=== PATIENT | male | born 1970 | race Caucasian/White ===

== ENCOUNTER → 2023-07-23 14:12 | Outpatient (REF) | payer OTHER, SELFPAY | LOC: RAD 14:12 | PROVIDERS: ATTENDING PHYSICIAN Nurse Practitioner | DX: M79.671 Pain in right foot (principal) | CPT/HCPCS: 73630 ==

== ENCOUNTER → 2024-09-07 15:46 | Outpatient (REF) | payer OTHER, SELFPAY | LOC: RAD 15:46 | PROVIDERS: ATTENDING PHYSICIAN Nurse Practitioner | DX: M54.12 Radiculopathy, cervical region (principal); M25.511 Pain in right shoulder | CPT/HCPCS: 72052; 73030 ==

== ENCOUNTER 2024-09-16 05:25 | Observation (INO) | payer OTHER, SELFPAY ==
[2024-09-15 18:23] VITALS: BP 199/129
[2024-09-15 18:42] LABS: % Basophils 0.4 % (0-2); % Eosinophils 0.1 % (0-6); % Immature Granulocytes 0.6 % (0-0.5); % Lymphocytes 9.2 % (20.5-51.1); % Neutrophils 86.7 % (42.2-75.2); Absolute Basophils 0.1 10^3/uL (0-0.2); Absolute Immature Granulocytes 0.1 10^3/uL (0-0.05); Absolute Lymphocytes 1.1 10^3/uL (1.2-3.4); Absolute Monocytes 0.4 10^3/uL (0.1-0.6); Absolute Neutrophils 10.2 10^3/uL (1.4-6.5); Hematocrit 45.5 % (39.0-52.0); Hemoglobin 16.4 g/dL (13.0-18.0); Mean Corpuscular Volume 94.2 fL (80.0-94.0); Mean Platelet Volume 10.1 fL (7.4-10.4); Nucleated Red Blood Cells % 0 % (-); Platelet Count 362 10^3/uL (130-400); Red Blood Cell Count 4.83 10^6/uL (4.70-6.10); Red Cell Dist. Width 11.9 % (11.5-14.5); White Blood Cell Count 11.7 10^3/uL (4.8-10.8)
[2024-09-15 19:05] LABS: ALT (SGPT) 32 U/L (0-50); AST (SGOT) 31 U/L (17-59); Albumin 5.2 g/dl (3.5-5.0); Alkaline Phosphatase 74 U/L (38-126); Blood Urea Nitrogen 22 mg/dl (9-20); Calcium 10.2 mg/dl (8.4-10.2); Carbon Dioxide 23 mmol/L (22-30); Chloride 108 mmol/L (98-107); Glucose 184 mg/dl (70-99); Potassium 4.9 mmol/L (3.5-5.1); Sodium 140 mmol/L (135-145); Total Bilirubin 0.4 mg/dl (0.2-1.3); Total Protein 8.7 g/dl (6.3-8.2); eGFR > 60.00
[2024-09-16] VITALS (9 sets, daily range): BP systolic 134–206; BP diastolic 93–128; BMI 23.6
[2024-09-16] MEDS: NSS 500 IV (00:52)
[2024-09-16 01:26] LABS: Troponin I < 0.012 ng/ml
--- NOTE | 2024-09-16 01:28 | ED.GENMED ---
History of Present Illness
General
Chief Complaint: Musculo-Skeletal Complaint
Source: patient
Exam Limitations: none
Time Seen by Provider: 09/15/24 23:46
History of Present Illness
History of Present Illness:
54-year-old male complaining of numbness to the 3 fingers of the right arm and some posterior back pain. Has been going on for weeks. No chest pain or shortness of breath. No weakness in the arm. No bowel or bladder issues.
Past History
Past History
ED Past Medical History: None
Review of Systems
Review of Systems
All Other Systems: Not applicable
Respiratory: Reports no symptoms
Cardiac: Reports no symptoms
ABD/GI: Reports no symptoms
Phy Exam
Physical Exam
Physical Exam:
GENERAL: Alert and oriented in no apparent distress
EYE: Orbits normal.
NECK: Supple, no significant adenopathy.
ENT: Pharynx without erythema
CARDIAC: Regular rate and rhythm without any obvious murmurs.
LUNGS: Clear breath sounds,normal
ABDOMEN: Soft, without focal tenderness or distention
NEUROLOGICAL: Alert and oriented , grossly non-focal. 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 Interosseous intact. Abduction of the shoulder intact. Good lower extremity strength.
SKIN: Warm and dry, no rash or lesion, no discoloration, skin intact.
MUSCULOSKELETAL: No edema,no deformity.Good color
PSYCH: Normal and appropriate interaction.
Course
Orders/Labs/Results
Orders:
Orders
09/15/24 18:27
Electrocardiogram (*1) Urgent
Reason for Study: Hypertension, Benign
EKG- Treatment ONCE
09/15/24 18:33
Complete Blood Count/With Diff Urgent
Comprehensive Metabolic Panel Urgent
09/16/24 00:03
CT Cervical Spine W/o Iv Contr Urgent
Comment:
Reason For Exam: Right arm paresthesias
09/16/24 00:29
CT Chest Angio W/wo Iv Contras Urgent
Comment:
Reason For Exam: Mid back pain/hypertensive
IV Insert/Care/Rem.- Treatment PRN
0.9% Sodium Chloride 500 ml [Nss] 500 ml IV BOLUS
09/16/24 00:54
Troponin I Urgent
09/16/24 01:48
HYDROmorphone [Dilaudid] 0.25 mg .ROUTE .STK-MED ONE
09/16/24 01:49
HYDROmorphone [Dilaudid] 0.25 mg IV NOW STA
09/16/24 02:55
Labetalol HCl [Trandate] 10 mg IV NOW STA
09/16/24 04:47
Admit/Transfer Patient As Directed
Co-Sign Provider:
Level of Care: Observation services
Assign to:: Telemetry
Physician / Group: Laz
Transfer to: Medical/Surgical
Diagnosis: RUE numbness/back pain r/o ACS
Reason for Telemetry: Chest Pain syndromes
Date to Stop Telemetry: 09/18/24
Time to Stop Telemetry: 11:00
Reason for Hospitalization: RUE numbness/back pain r/o ACS
PRN Pain Medication Management As Directed
May give lesser potent ordered pain med per pt: Yes
preference::
Protocol:: Medication orders for pain may be administered in a
manner that supports deferring to patient preference
when the pt is:
- Requesting an ordered lesser potent pain medication.
Least to most potent pain medications are defined
as: acetaminophen < NSAID < tramadol < opioids
(morphine, oxycodone, hydromorphone).
- Requesting a lesser dose of the same medication IF
ORDERED.
- Requesting a less intrusive route of administration
if both routes are prescribed by the provider (PO <
IV).
09/16/24 04:48
Code Status As Directed
Resuscitation Status: Full Code
09/16/24 04:52
Lactated Ringers [Lr] 500 ml IV BOLUS
09/16/24 04:55
Amlodipine [Norvasc] 5 mg PO DAILY
09/16/24 05:00
Flush (0.9% Sodium Chloride) [Flush (Nss)] See Dose Instructions IV PER PROTOCOL
09/16/24 05:04
Tramadol HCl [Ultram] 50 mg PO Q6HPRN PRN
09/16/24 05:17
Labetalol HCl [Trandate] 10 mg IV Q6HPRN PRN
09/16/24 Breakfast
NPO
Allow oral meds: Yes
Allow clear liquids: Sips of Clears
NPO with Ice Chips: Yes
09/16/24 07:10
CPK [Creatine Phosphokinase] Urgent
Comment: add on
Troponin I Urgent
09/16/24 08:35
Acetaminophen [Tylenol] 650 mg PO Q4HPRN PRN
Bisacodyl [Dulcolax] 10 mg RECTAL [id number] PRN
Docusate W/Senna [Senokot-S] 1 tablet PO BIDPRN PRN
Ketorolac [Toradol] 15 mg IV Q6HPRN PRN
Mag Hydrox/Al Hydrox/Simeth [Maalox] 30 ml PO QIDPRN PRN
Ondansetron Injectable [Zofran] 4 mg IV Q6HPRN PRN
Pantoprazole [Protonix] 40 mg PO DAILY
Polyethylene Glycol Powder [Miralax] 17 grams PO DAILYPRN PRN
09/16/24 08:35
Consult Cardiology [CARDIOLOGY CONSULT] Routine
Consulting Provider: Jacob Pineda
Was physician already notified: No
Reason for consult: Mild abnormal CT findings. Subtle Lateral ST depressions. Mother with MIx5.
Consult Notification Routine
Specialty to Notify: Cardiology
Date consulting provider notified: 09/16/24
Time consulting provider notified: 08:46
Notified:: Provider
Comment: TT
Consult Notification Routine
Specialty to Notify: Neurology
Date consulting provider notified: 09/16/24
Time consulting provider notified: 08:46
Notified:: Provider
Comment: TT
NEUROLOGY CONSULT Routine
Consulting Provider: Mich Kilpatrick
Was physician already notified: No
Reason for consult: RUE neuropathy ?plexopathy.
Activity As Directed
Activity Level: As Tolerated
Vital Signs As Directed
Frequency: Per unit guidelines
DX Deep Vein Thrombosis Video Routine
09/16/24 18:00
Enoxaparin Sodium [Lovenox] 40 mg SC QPM
09/17/24 06:00
Basic Metabolic Panel IN AM
Cardiovascular Evaluation IN AM
Complete Blood Count/No Diff IN AM
Hemoglobin A1c [Glycohemoglobin (HgbA1c)] IN AM
LFT [Nkyxx-Yeot-Vzdfura] IN AM
Magnesium IN AM
Vitamin B12 IN AM
OT Consult [Ot Eval And Treat] IN AM
Treatment: RUE pain/neuropathy
Physical Therapy Consult [Pt Eval And Treat] IN AM
Treatment: RUE pain/neuropathy
Activity Level: As Tolerated
09/18/24 11:00
DC Protocol for Telemetry ONCE
Abnormal Lab Results
09/15/24
18:33
WBC 11.7 H 10^3/uL
(4.8-10.8)
MCV 94.2 H fL
(80.0-94.0)
MCH 34.0 H pg
(27.0-31.0)
Abs Immat Gran (auto) 0.1 H 10^3/uL
(0-0.05)
Absolute Neuts (auto) 10.2 H 10^3/uL
(1.4-6.5)
Absolute Lymphs (auto) 1.1 L 10^3/uL
(1.2-3.4)
Immature Gran % 0.6 H %
(0-0.5)
Neutrophils % 86.7 H %
(42.2-75.2)
Lymphocytes % 9.2 L %
(20.5-51.1)
Chloride 108 H mmol/L
(98-107)
BUN 22 H mg/dl
(9-20)
Glucose 184 H mg/dl
(70-99)
Total Protein 8.7 H g/dl
(6.3-8.2)
Albumin 5.2 H g/dl
(3.5-5.0)
09/15/24 18:33
09/15/24 18:33
Vital Signs
Initial and Last Documented VS:
Initial Vital Signs
Temp Pulse Resp BP Pulse Ox
98.2 F 100 16 199/129 96
09/15/24 18:23 09/15/24 18:23 09/15/24 18:23 09/15/24 18:23 09/15/24 18:23
Last Documented Vital Signs
Temp Pulse Resp BP Pulse Ox
97.3 F 65 18 141/93 95
09/16/24 11:45 09/16/24 11:45 09/16/24 11:45 09/16/24 11:45 09/16/24 11:45
MDM/Problems Addressed
Differential Diagnosis Includes:
Patient very much describing radiculopathy like symptoms with symptoms to the right brachial plexus and upper scapular area. However with symptoms hypertension bilaterally feel dissection needs to be ruled out. This does not appear cardiac. Mild
white count but has been on steroids. Doubt an infectious etiology. Not describing other infectious issues. Also not describing any acute neurologic symptoms other than the paresthesias to digits 1 2 and 3.
*Radiology
Radiology exam reviewed: radiology read reviewed (Cervical spine with left-sided foraminal changes. CT scan chest showing subtle subendocardial hypoattenuation. Esophagitis appearance by CT)
*Critical Care Note
Total Time (30-74mins, 75-104mins- exclusive of procedures): Not Applicable
Update Note
Update Note:
Patient's last diastolic blood pressure was 118 and this was after pain management. He should be admitted for blood pressure control and further workup of his symptoms. Clinically this is likely a radiculopathy
ED Attending Note
-
Portions of this chart may have been created with voice recognition software.� Occasional wrong word or��sound alike� substitutions may have occurred due to the inherent limitations of voice recognition software.
Discharge Plan
Departure
Patient Disposition: Admit
Date of Disposition: 09/16/24
Time of Disposition: 02:57
Presentation/result/management discussed w/ accepting MD/DO: Hospitalist
Discharge Problem:
Severe hypertension, Right arm radiculopathy
Interventions
Interventions:
*Risk Screen - Suicide Last Done: 09/15/24 18:26
*General Assessment Last Done: 09/16/24 05:54
*Neglect/Abuse Screening Last Done: 09/15/24 18:26
*ED- Fall Risk Assessment Last Done: 09/15/24 23:14
*ED COVID-19 Vaccine History Last Done: 09/15/24 23:15
*Nursing Disposition Last Done: 09/16/24 08:25
ED-Musculoskeletal Assessment Last Done: 09/15/24 23:15
Discharge Date and Time
Discharge Date/Time: 09/16/24 08:25
[2024-09-16] MEDS: DILAUDID 0.25 MG IV (01:49)
[2024-09-16] MEDS: TRANDATE 10 MG IV (03:16)
--- NOTE | 2024-09-16 04:56 | HPS.HSE ---
Family Physician
-
Family Physician: Linda Meza
Chief Complaint
-
Shoulder and RUE Pain/Neuropathy/Numbness x 2.5 weeks
History of Present Illness
Pleasant 54yo M with PMH Untreated HTN presents to ER wtih RUE Shoulder Pain/Neuropathy/Numbness x 2.5 weeks. 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 Has since had A/P right shoulder
pain. Over the last 4 days noticed numbness/tingling of R digits 1-2-3. He also reports pain between his b/l shoulder blades. Denies any specific chest pain or involvement of left shoulder/jaw. He does report mother with CA x 5, age 72. Also
father wtih Hx PE but likely 2/2 malignancy. Denies F/C, CP, palps, SOb, cough, abd pain, n/v/d/c, dysuria, calf or leg pain. 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
ER course: Pt presents BP 206/118 on presentation other V.S.S. WBC 11.7K, Hgb 16.4 g/dL. BUN/Cr 22/0.7, BG 184, HS Trop <0.012.�CTA chest: No PE/dissection.��Heart normal size. subtle subendocardial hypoattentuation in LV, correlate for CA. 3mm RUL
nodule. Mild thickening suggesting esophagitis. Fatty Liver. CT Cspine Cervical spine with left-sided foraminal changes (official health insurance sales agent pending). EKG: ST @ 104bpm, Q-waves V1-V2, Subtle ST-Dep v-4V6, I-AVL, QTC 444ms.�S/P 0.25mg IV dilaudid
in ER.
Medical History
Past Medical History
Past Medical History: Reports HTN
Past Surgical History: Reports None
Social History
Tobacco: Smoker (1/2 PPD x 28 yrs)
Alcohol: Other (Frequent 2-3 beers 4x per week (bar shank faker). No seizures/withdrawal hx)
Drug: Other (Former occasional marijuana)
Family History
Family History: Other (Mother wtih CAD s/p CA x5; Father with PE/DVT and Malignancy )
Allergies / Home Medications
Allergies reflects when Allergies were last updated in [facility].
Home Medications with original date entered in [facility]
Allergy/Medication List:
Allergies
Allergy/AdvReac Type Severity Reaction Status Date / Time
No Known Allergies Allergy Unverified 09/15/24 18:27
Review of Systems
-
A 12 point ROS was completed and negative except as noted: Yes
Physical Exam
Vital Signs
Vital Signs
Temp Pulse Resp BP Pulse Ox
98.2 F 76 14 157/109 97
09/15/24 18:23 09/16/24 03:45 09/16/24 03:45 09/16/24 03:45 09/16/24 03:45
Physical Exam
General: Well Developed, Well Nourished and No Apparent Distress
HEENT: NormoCephalic, Moist mucous membranes and Atraumatic
Respiratory: Clear
Cardiac: S1/S2 and Regular Rhythm; No Murmur or Rub
GI: Soft, Non Tender, Non Distended and Normal Bowel Sounds; No Organomegaly
Rectal: Deferred by Provider
Genito-urinary: No costovertebral tender; No Barnes
Musculoskeletal: No Clubbing, No Cyanosis and No Edema
Skin: Warm and Dry; No Rash
Neuro: Awake, Alert, Oriented, AO x 3, Cranial Nerves Intact and Other (RUE pain with active/passive shoulder flexion. +TTP right posterior/anterior shoulder joint. No reproducible chest or back pain. Diminished sensation of digits 2>1 and 3 on
right. Otherwise sensation intact. ); No Slurred Speech, Facial Droop or Tremors
Hematologic/Lymphatic: No Lymphadenopathy
Psych: Calm
Laboratory Results
-
09/15/24 18:33
09/15/24 18:33
Laboratory Results
Total Bilirubin 0.4 mg/dl (0.2-1.3) 09/15/24 18:33
AST 31 U/L (17-59) 09/15/24 18:33
ALT 32 U/L (0-50) 09/15/24 18:33
Alkaline Phosphatase 74 U/L (38-126) 09/15/24 18:33
Troponin I < 0.012 ng/ml 09/16/24 00:54
Data Reviewed
-
Diagnostic Radiology: Image Personally Visualized and interpreted
CT Scan: Image Personally Visualized and interpreted
Medical Tests (Nuc Med, Echo, EKG etc): Image Personally Visualized and interpreted
Lab Data: Labs Reviewed by me
Old Records: Reviewed
Impression/Plan
-
Hypertensive Urgency
- BP 206/118 -> 160/100 s/p 10mg IV labetalol in ER
- Start 5mg Amlodipine and follow trends
- Prn labetalol for SBP > 170 mmHg
- Appreciate cardio recs.
Abnormal EKG / Abnormal CTA Chest
- Incidental findings on this admission in setting of hypertensive urgency. Does not appear to have any chest pain or exertional complaints
- EKG: ST @ 104bpm, Q-waves V1-V2, Subtle ST-Dep v-4V6, I-AVL, QTC 444ms.�
- CTA chest: No PE/dissection.��Heart normal size. subtle subendocardial hypoattenuation in LV, correlate for CA. 3mm RUL nodule. Mild thickening suggesting esophagitis. Fatty Liver
- HS Trop Neg x 1. Repeat pending. Check lipids/A1C
- Consider TTE
- Will consult cardio noting Pts mother with Fhx MIx5; also with ETOH use. Suspect he would benefit from ischemic testing in vs outpatient.
Right Upper Extremity Neuropathy / Numbness Tingling
- Likely related to heavy lifting with associated neuropathy and numbness/tingling worst and R 2nd digit > 1st and 3rd.
- CT C-spine: left-sided foraminal changes, follow official read
- S/P 0.25mg IV dilaudid in ER. Continue prn Tylenol/Toradol/Tramadol for kmax-iun-usrrly pain.
- Consider Steroid taper (once BP controlled) or Gabapentin
- Consult PT/OT
- Will consult neuro given the dec sensation. Consideration for MRI
Esophageal Thickening - Incidental finding on CT imaging. Likely related to ETOH use. Start protonix daily. Maalox TIDWM prn
Alcohol Use - Drinking 2-3 beers 4 x per week. Check LFTs. CT with fatty liver findings. Denies past withdrawal issues. Will monitor and treat accordingly.
Diet: NPO pending cardiac eval, likely safe to advance
DVT ppx: Lovenox
Code Status: Full code
[2024-09-16] MEDS: NORVASC 5 MG PO ×2 (05:22→09:05)
[2024-09-16] MEDS: LR 500 IV (05:25)
[2024-09-16] MEDS: ULTRAM 50 MG PO (06:31)
[2024-09-16 07:30] LABS: Creatine Phosphokinase 60 U/L (55-170)
[2024-09-16 07:43] LABS: Troponin I < 0.012 ng/ml
[2024-09-16] MEDS: PROTONIX 40 MG PO (09:05)
--- NOTE | 2024-09-16 09:48 | CON.CAR ---
Addendum entered and electronically signed by Fawad Rivera MD 09/16/24 16:01:
I saw and examined the patient.
The SLITTER SCORER's note was reviewed and I agree with the note.
54-year-old male with a history of smoking and hypertension who presented with right shoulder pain and numbness in the fingers on his right hand. Symptoms occurred while lifting a keg of beer.
No prior cardiac history no chest discomfort or shortness of breath. Prior to lifting the keg he felt fine with physical exertion. Patient had a CT scan on the initial read there was a question regarding subendocardial hypoattenuation of unclear
etiology although on the official reading this area is not not reported as abnormal. CT scans were reviewed with radiology. Not clear that there is a true abnormality. In any case patient's troponins are negative. No symptoms to suggest angina
or CHF echocardiogram shows normal left ventricular function with no focal wall motion abnormalities. I reviewed issues with patient. I would not recommend additional cardiac testing at the current time. Would focus on the chief problem which is
his right shoulder pain and hand numbness. I did review with him risk factors for coronary artery disease and we discussed the importance of stopping smoking as well as monitoring and treatment of hypertension. We discussed possible stress testing
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 Will reassess as an outpatient after he has additional recovery. Please call if additional assistance required
Original Note:
Consultation
Consultation Request
Date/Time Consultation Requested: 09/16/24834
Date/Time Consultation Performed: 09/16/24924
Requesting Provider: Dr. Nesbitt
Performing Provider: Shanika FIERRO for Dr. Rivera
Reason for Consultation: abnormal CT scan, EKG
Medical History
-
Chief Complaint: right shoulder pain and finger numbness
History of Present Illness:
54 y/o male with HTN (told every year if it gets worse, he'd need medicine) and tobacco use who is here for evaluation of about 1 week of right shoulder pain with associated numbness of 3 fingers on right hand. He recalls when he hurt it carrying
kegs of beer. Worse in certain positions. Pain meds helped here. BP severely elevated on arrival, improved with treatment of pain and also anti-hypertensives (labetalol, amlodipine). CT scan done and showed no dissection, but did show subtle
subendocardial hypoattenuation within left ventricle. No CP or SOB. No distress at the time of my assessment.
Past Medical History
Past Medical History: HTN
Social History
Tobacco: Smoker (1/2 PPD)
Alcohol: Other (3-4 drinks, 3-4 days per week)
Family History
Family History: CAD (mom SD age 60)
Allergies / Home Medications
Allergy/AdvReac Type Severity Reaction Status Date / Time
No Known Allergies Allergy Unverified 09/15/24 18:27
�Medication �Instructions �Recorded �Confirmed �Type
No Meds [No Current Medications] 09/16/24 09/16/24 History
Review of Systems
-
History Source: Patient
All other systems: Negative unless noted
Musculoskeletal: Other (right shoulder pain and fingers numbness as described)
Physical Exam
Vital Signs
Temp Pulse Resp BP Pulse Ox
97.9 F 66 18 149/96 94
09/16/24 08:36 09/16/24 08:36 09/16/24 08:36 09/16/24 08:36 09/16/24 08:36
Lab Results
09/15/24 18:33
09/15/24 18:33
Troponin I < 0.012 ng/ml 09/16/24 07:10
Physical Exam
General: Well Developed, Well Nourished and No Apparent Distress
HEENT: Normocephalic and Anicteric
Respiratory: Clear and Non Labored Respirations
Cardiac: Regular Rhythm
Musculoskeletal: No Edema
Skin: Warm and Dry
Neuro: AO x 3
Psych: Calm
Impression / Plan
-
Right shoulder pain with finger numbness:
-sounds to be musculoskeletal related to injury as noted in detail
-neuro is consulted with numbness
Abnormal CT scan:
-no acute thoracic aortic pathology, subtle subendocardial hypoattenuation within LV, 3 mm micronodule within RUL, mild thickening of distal esophagus suggesting esophagitis, fatty liver
-for cardiac abnormality, will start with echo. No CP or SOB and trop is normal. Repeat EKG- initial did not show and significant abnormalities to my review.
-other findings- workup and management per primary team
HTN:
-severely elevated on arrival
-improved with pain control and antihypertensives
-continue amlodipine and monitoring
Tobacco abuse:
-recommended total cessation
ETOH use:
-recommended cutting back on use
Data Reviewed
-
EKG: Tracing Personally Visualized and interpreted
CT Scan: Report Reviewed by me (no acute thoracic aortic pathology, subtle subendocardial hypoattenuation within LV, 3 mm micronodule within RUL, mild thickening of distal esophagus suggesting esophagitis, fatty liver)
Medical Tests (Nuc Med, Echo etc): Other (echo ordered)
Labs: Labs Reviewed by me
[2024-09-16] MEDS: TORADOL 15 MG IV (11:20)
--- NOTE | 2024-09-16 14:03 | CON.NEURO ---
Neuro Assessment/Plan
Assessment
probably carpal tunnel, with numbness in digits 1-3 and weakness of thumb abduction; though the numbness doesn't split digit 4, and there is no numbness on the hand
outpatient EMG
declines rx gabapentin
right supraspinatus and biceps tendonitis - outpatient PT
Consultation
Order
Date of Consultation: 09/16/24
Requesting Provider: Yolande Nesbitt
Reason for Consult: paresthesia
Subjective/Objective
Subjective Data
Date of Service: September 16, 2024
from h&p:
Pleasant 54yo M with PMH Untreated HTN presents to ER [facility] Shoulder Pain/Neuropathy/Numbness x 2.5 weeks. 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 Has since had A/P right shoulder
pain. Over the last 4 days noticed numbness/tingling of R digits 1-2-3. He also reports pain between his b/l shoulder blades. Denies any specific chest pain or involvement of left shoulder/jaw. He does report mother with NE x 5, age 72. Also
father wt Hx PE but likely 2/2 malignancy. Denies F/C, CP, palps, SOb, cough, abd pain, n/v/d/c, dysuria, calf or leg pain. 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
in 2019 he fell off a deck on his right shoulder, fractured right humerus great tuberosity, labrum tear, glenohumeral sprain. also found right teres minor atrophy - healed without surgery
Objective Data
Vital Signs
Temp Pulse Resp BP Pulse Ox
36.3 C 65 18 141/93 95
09/16/24 11:45 09/16/24 11:45 09/16/24 11:45 09/16/24 11:45 09/16/24 11:45
Lab Results
09/15/24 18:33
Sodium 140 mmol/L (135-145) 09/15/24 18:33
Potassium 4.9 mmol/L (3.5-5.1) 09/15/24 18:33
BUN 22 mg/dl (9-20) H 09/15/24 18:33
Glucose 184 mg/dl (70-99) H 09/15/24 18:33
Calcium 10.2 mg/dl (8.4-10.2) 09/15/24 18:33
Patient Allergies
No Known Allergies Allergy (Unverified 09/15/24 18:27)
Physical Exam
-
AAOx3, speech clear, language intact
right hand diminished pinprick digits 1-3, with intact sensation on palm, does not split digit 4
right APB 4/5 strength, remainder muscles full strength
tender right supraspinatus tendon and biceps tendon
empty can test negative
Chery and Pillai signs negative
Medications
-
Active Medications
Generic Name Dose Route Start Last Admin
Trade Name Freq PRN Reason Stop Dose Admin
Acetaminophen 650 mg 09/16/24 08:35
Acetaminophen 325 Mg Tablet PO 10/14/24 08:34
Q4HPRN PRN
mild pain/HORTON/temp> 100.4F
Al Hydrox/Mg Hydrox/Simethicone 30 ml 09/16/24 08:35
Mag/Al/Simethicone Suspension 30 Ml Cup PO 10/14/24 08:34
QIDPRN PRN
indigestion
Amlodipine Besylate 5 mg 09/16/24 04:55 09/16/24 09:05
Amlodipine 5 Mg Tablet PO 10/14/24 04:54 5 mg
DAILY GRACY Administration
Bisacodyl 10 mg 09/16/24 08:35
Bisacodyl 10 Mg Rectal Suppository RECTAL 10/14/24 08:34
[id number] PRN
constipation
Enoxaparin Sodium 40 mg 09/16/24 18:00
Enoxaparin Sodium 40 Mg/0.4 Ml Syringe SC 10/14/24 17:59
QPM GRACY
Ketorolac Tromethamine 15 mg 09/16/24 08:35 09/16/24 11:20
Ketorolac 15 Mg/Ml Injection IV 09/21/24 08:34 15 mg
Q6HPRN PRN Administration
moderate pain
Labetalol HCl 10 mg 09/16/24 05:17
Labetalol Hcl 5 Mg/1 Ml (20 Mg/4 Ml) Injection IV 10/14/24 05:16
Q6HPRN PRN
SBP > 170 mmHg
Ondansetron HCl 4 mg 09/16/24 08:35
Ondansetron 4 Mg/2 Ml Vial IV 10/14/24 08:34
Q6HPRN PRN
nausea and vomiting
Pantoprazole Sodium 40 mg 09/16/24 08:35 09/16/24 09:05
Pantoprazole 40 Mg Delayed Release Tablet PO 10/14/24 08:34 40 mg
DAILY GRACY Administration
Polyethylene Glycol 17 grams 09/16/24 08:35
Polyethylene Glycol Powder 17 Grams Packet PO 10/14/24 08:34
DAILYPRN PRN
constipation
Senna/Docusate Sodium 1 tablet 09/16/24 08:35
Docusate W/Senna (Catherine-Colace) Tablet PO 10/14/24 08:34
BIDPRN PRN
constipation
Sodium Chloride 0 flush 09/16/24 05:00
Sodium Chloride 0.9% (Flush) Syringe IV 10/14/24 04:59
PER PROTOCOL GRACY
Tramadol HCl 50 mg 09/16/24 05:04 09/16/24 06:31
Tramadol Hcl 50 Mg Tablet PO 10/14/24 05:03 50 mg
Q6HPRN PRN Administration
severe pain
Home Medications
�Medication �Instructions �Recorded
No Meds [No Current Medications] 09/16/24
[2024-09-16 14:11] LABS: Blood Urea Nitrogen 14 mg/dl (9-20); Calcium 9.4 mg/dl (8.4-10.2); Carbon Dioxide 24 mmol/L (22-30); Chloride 108 mmol/L (98-107); Estimated Creatinine Clearance > 125 ml/min; Glucose 114 mg/dl (70-99); Potassium 4.3 mmol/L (3.5-5.1); Sodium 138 mmol/L (135-145); eGFR > 60.00
--- NOTE | 2024-09-16 16:41 | W.PN.HOSP.TC ---
Addendum entered and electronically signed by Leah Flood MD 09/16/24 16:53:
Sent a message to GI front office to schedule an appointment for EGD
OP stress test
More than 30 minutes spent in discharge including
Final examination of the patient
Summarizing hospital stay
Instructions for continuing care to all relevant caregivers
Preparation of discharge records, prescriptions, and referral forms
Total time spent (in minutes):38 min
Original Note:
Today's Communication/Plan
-
Discharge
Assessment / Plan
Assessment / Plan
54-year-old male with hypertension comes in for right shoulder pain and numbness of the 3 fingers on the right hand for 2-1/2 weeks. He was carrying kegs of beer when this started. CT in the ER did not show any acute changes such as dissection but
showed subtle endocardial hypoattenuation in the left ventricle. Patient also has a strong family history of CAD .
Pain in the right supraspinatus muscle in the shoulder
Numbness of the lateral 3 digits right hand
Cardiovascular system S1-S2 appreciated
Chest clear to auscultation
Abdomen soft and nontender
Normal motor strength bilateral upper extremities and lower extremities
# Right shoulder pain with numbness of the fingers
Likely musculoskeletal
CT of the cervical spine-no evidence of acute osseous abnormality
Neurology is consulted-appreciated
Outpatient EMG
Lidocaine patch and muscle relaxants for pain
# Abnormal CT of the ventricle
Subtle subendocardial hypoattenuation
EKG-normal
ECHO-normal LV size and systolic function. EF 60 to 65%. Mild MR. Mild TR.
Outpatient stress test
# Hypertension continue amlodipine
# Mild thickening of the esophagus-start PPI. Needs EGD as outpatient-discussed
Needs to stop alcohol and also NSAID use-discussed
# Hepatic steatosis-outpatient follow-up
# 3 mm solid pulmonary nodule in the right upper lobe. OP Follow up
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 Slight chronic loss of height at the superior endplate of T5.
# Alcohol use-2-3 beers 4 times a week-needs to cut back
# Tobacco use-cessation counseling-done
# DVT prophylaxis-Lovenox
# Full code
Discussed with cardiology
Discussed with nursing
Part of this note was created using voice recognition system. Occasional wrong word or��sound alike� substitutions may have inadvertently occurred due to the inherent limitations of voice recognition software. If noted kindly bring it to my
attention for correction.
Discharge
Anticipated Discharge: Today
Subjective/Interval History
-
Date of Service: September 16, 2024
Objective Data
-
Labs:
Laboratory Results
09/16/24
13:50
Sodium 138
Potassium 4.3
Chloride 108 H
Carbon Dioxide 24
BUN 14
Creatinine 0.6 L
Glucose 114 H
Calcium 9.4
Vital Signs:
Vital Signs
Temp Pulse Resp BP Pulse Ox
97.5 F 71 18 148/96 96
09/16/24 15:37 09/16/24 15:37 09/16/24 15:37 09/16/24 15:37 09/16/24 15:37
I&O
09/15/24 09/16/24 09/17/24
06:59 06:59 06:59
Intake Total 1000 / 1000
Balance 1000 / 1000
[2024-09-16] MEDS: FLEXERIL 5 MG PO (16:53)
[2024-09-16] MEDS: LIDOCAINE 4% PATCH 1 PATCH TOPICAL (16:53)
--- NOTE | 2024-09-16 16:53 | W.DS.TRANS ---
Addendum entered and electronically signed by Leah Flood MD 09/16/24 17:09:
Dictation- [id number]
Original Note:
DC Summary - Title Clerk
-
Discharge Instructions:
Discharge Diagnosis/Procedures Muscular pain
Hypertension
Thickening of the esophagus
Fatty liver
3 mm pulmonary nodule in the right upper lobe
Loss of height of the superior endplate of T5
vertebra
Diet 2 Gram Sodium
Activity As tolerated
Additional Activity Do not lift any weights
Driving Restrictions As prior to admission
Instructions:
Stand-Alone Forms:
Changes to Home Medications: No
Discharge Medications:
DC Medications w/original date entered in [employer]
acetaminophen 325 mg tablet 650 mg (2 x 325 mg) PO Q4HPRN PRN pain #0 tabs 09/16/24
amlodipine 5 mg tablet 5 mg PO DAILY Blood pressure #30 tabs 09/16/24
cyclobenzaprine 10 mg tablet 5 mg (1/2 x 10 mg) PO Q8HPRN PRN spasm #20 tabs 09/16/24
lidocaine 4 % topical patch 1 patch topical DAILY Pain #0 ea 09/16/24
pantoprazole 40 mg tablet,delayed release 40 mg PO DAILY Gastrointestinal issue #30 tabs 09/16/24
Home Medication Changes
all above new
Pending Results: Yes
== END 2024-09-16 17:49 | disposition home or self-care (01) ==
LOC: 4 EAST ACU 05:25
PROVIDERS: Student in an Organized Health Care Education/Training Program; ADMITTING PHYSICIAN Internal Medicine; ATTENDING PHYSICIAN Hospitalist; CONSULT PHYSICIAN Psychiatry & Neurology Clinical Neurophysiology; EMERGENCY PHYSICIAN Emergency Medicine; FAMILY PHYSICIAN Nurse Practitioner; OTHER PHYSICIAN Internal Medicine Cardiovascular Disease
DX: M79.10 Myalgia, unspecified site (principal); R20.0 Anesthesia of skin; M54.6 Pain in thoracic spine; I10 Essential (primary) hypertension; K22.9 Disease of esophagus, unspecified; K76.0 Fatty (change of) liver, not elsewhere classified; R29.890 Loss of height; F17.210 Nicotine dependence, cigarettes, uncomplicated; M25.511 Pain in right shoulder; M25.512 Pain in left shoulder; R53.1 Weakness; I08.1 Rheumatic disorders of both mitral and tricuspid valves; R91.1 Solitary pulmonary nodule; J98.11 Atelectasis; R00.0 Tachycardia, unspecified; I16.0 Hypertensive urgency; R94.31 Abnormal electrocardiogram [ECG] [EKG]; G62.9 Polyneuropathy, unspecified; F10.90 Alcohol use, unspecified, uncomplicated; Z79.899 Other long term (current) drug therapy; Z82.49 Family history of ischemic heart disease and other diseases of the circulatory system
CPT/HCPCS: 71275; 72125; 80048; 80053; 82550; 83735; 84484; 85025; 93005; 93306; 96361; 96374; 96375; 99284; G0378; Q9967

== ENCOUNTER 2024-09-24 13:07 | Emergency (ER) | payer OTHER, SELFPAY ==
[2024-09-24 13:17] VITALS: BP 145/102
--- NOTE | 2024-09-24 13:43 | ED.GENMED ---
History of Present Illness
General
Chief Complaint: Musculo-Skeletal Complaint
Time Seen by Provider: 09/24/24 13:43
History of Present Illness
History of Present Illness:
TIME OF INITIAL ENCOUNTER: 1:45 PM
HPI: The patient presents with rather severe right shoulder pain. He was seen here for similar but less severe symptoms last week and admitted briefly. He states that he saw [facility] orthopedics in the past and had a steroid injection a few
weeks ago. The pain continues to worsen. Has been having trouble scheduling an MRI. He was not sure what else to do so he came in here. He states the original injury was about a month ago when he was moving a keg and states now the pain is worse
than it ever has been.
EXAM:
GENERAL: Well appearing in no distress
HEENT: Moist oral mucosa
CARDIOVASCULAR: No murmurs, normal heart rate, regular rhythm, No chest wall tenderness
PULMONARY: No respiratory distress, breath sounds are clear and equal
ABDOMEN: Soft with no peritoneal signs, no tenderness
NEUROLOGIC: Excellent strength all extremities, no coordination deficits
PSYCHIATRIC: Appropriate mental status, normal insight and judgement
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
motion into abduction
SKIN: No rash, no lesions
NUMBER AND COMPLEXITY OF PROBLEMS ADDRESSED AT THE ENCOUNTER
� Chronic conditions affecting care: High blood pressure
� Acute Exacerbation and/or Progression of Chronic Illness: This is an acute problem
� Differential Diagnosis includes: Calcific tendinitis/tendinosis, rotator cuff pathology
AMOUNT AND/OR COMPLEXITY OF DATA TO BE REVIEWED AND ANALYZED
� I performed an independent evaluation of and my interpretation is:
EKG:
CT:
X-rays: Chest x-ray personally viewed and shows no significant change in comparison to the x-ray from 09/07/2024
Laboratory Studies:
Other:
� Review of other/old records: I reviewed records. The patient was admitted here just over 1 week ago with paresthesias to the right upper extremity along with rather severe right shoulder pain. He was placed on amlodipine for
high blood pressure and had an abnormal EKG. Echo was relatively unremarkable. CTA ruled out PE/dissection. Cardiology at that time recommended outpatient stress test. Neurology evaluated the patient and thought the symptoms may be related to
carpal tunnel and may be a pulled muscle in the supraspinatus region. He was placed on muscle relaxants and lidocaine patch.
� Clinical information was obtained by an independent historian: None needed
� Prescriptions/Medications Considered but not given:
� Further testing considered but not performed:
RISK OF COMPLICATIONS AND/OR MORBIDITY OR MORTALITY OF PATIENT MANAGEMENT
� Social determinants of health affecting care: Lives at home
� Discussion with other providers: I discussed case with Dr. Atkinson. Recommend she follows up with Dr. Marin after MRI obtained. I notified the MRI of the outpatient scheduling to try to bump up his appointment. Patient tells
me he does not have an appointment yet but try to call their office and they have not called him back.
� Escalation of care including admission/observation vs risk of discharge considered: The patient appeared rather uncomfortable upon arrival. He was given Dilaudid, steroids, and Toradol.
ANY OTHER UPDATES:
The patient appears somewhat more comfortable after meds given on reassessment at 4 PM.
Past History
Past History
ED Past Medical History: None
Phy Exam
Physical Exam
Physical Exam:
See HPI
Course
Orders/Labs/Results
Orders:
Orders
09/24/24 13:53
HYDROmorphone [Dilaudid] 1 mg IV NOW STA
Hydrocortisone Sod Succinate [Solu-Cortef] 125 mg IV NOW STA
Ketorolac [Toradol] 15 mg IV NOW STA
Ondansetron Injectable [Zofran] 4 mg IV NOW STA
09/24/24 13:55
CR Shoulder - Right Min 2 View Urgent
Comment:
Reason For Exam: worsening pain
Vital Signs
Initial and Last Documented VS:
Initial Vital Signs
Temp Pulse Resp BP Pulse Ox
36.7 C 103 20 145/102 99
09/24/24 13:17 09/24/24 13:17 09/24/24 13:17 09/24/24 13:17 09/24/24 13:17
Last Documented Vital Signs
Temp Pulse Resp BP Pulse Ox
36.7 C 85 20 147/101 98
09/24/24 13:17 09/24/24 14:00 09/24/24 14:00 09/24/24 14:00 09/24/24 14:00
*Critical Care Note
Total Time (30-74mins, 75-104mins- exclusive of procedures): Not Applicable
ED Attending Note
-
Portions of this chart may have been created with voice recognition software.� Occasional wrong word or��sound alike� substitutions may have occurred due to the inherent limitations of voice recognition software.
Discharge Plan
Departure
Patient Disposition: Home (Routine Discharge)
Date of Disposition: 09/24/24
Time of Disposition: 15:47
Patient with high blood pressure during this ER visit?: Yes
Discharge Problem:
Acute pain of right shoulder
Instructions: Passive Range of Motion Exercises, Neck and Shoulders, Shoulder pain
Prescriptions:
New
oxycodone-acetaminophen [Percocet] 5-325 mg tablet
1 - 2 tab PO Q6HPRN PRN (Reason: pain) Qty: 14 0RF
methylprednisolone [Medrol ([place])] 4 mg tablets,dose pack
4 mg PO DAILY Qty: 21 0RF
No Action
cyclobenzaprine 10 mg Tablet
5 mg PO Q8HPRN PRN (Reason: spasm) Qty: 20 0RF
acetaminophen 325 mg Tablet
650 mg PO Q4HPRN PRN (Reason: pain) Qty: 0 0RF
lidocaine 4 % Adhesive Patch,Medicated
1 patch topical DAILY Qty: 0 0RF
amlodipine 5 mg Tablet
5 mg PO DAILY Qty: 30 0RF
pantoprazole 40 mg Tablet,Delayed Release (Dr/Ec)
40 mg PO DAILY Qty: 30 0RF
Referrals:
Mauri Marin MD [Active, Orthopedics]
Linda Meza CRNP [Family Provider, Family Practice]
Activity Restrictions/Additional Instructions:
I did communicate with Gunnar Adamson from the MRI department. She states that should only move up an already scheduled MRI. Please call them again for scheduling the MRI and hopefully they can get you in sooner. After the MRI, it is recommend
that you follow-up with Dr. Marin. At Dr. Atkinson's request, I sent a prescription for a Medrol Dosepak to your pharmacy. I also sent a prescription for Percocet to the pharmacy to help with your rather severe pain. If you take the Percocet, I
recommend something like MiraLAX to prevent constipation.
Interventions
Interventions:
*Risk Screen - Suicide Last Done: 09/24/24 13:17
*General Assessment Last Done: 09/24/24 14:00
*Neglect/Abuse Screening Last Done: 09/24/24 14:00
*ED- Fall Risk Assessment Last Done: 09/24/24 14:00
*ED COVID-19 Vaccine History Last Done: 09/24/24 14:00
ED-Musculoskeletal Assessment Last Done: 09/24/24 14:00
Discharge Date and Time
Print Language: COLOMBIAN
[2024-09-24 14:00] VITALS: BP 147/101; BMI 28.5
[2024-09-24] MEDS: DILAUDID 1 MG IV (14:12)
[2024-09-24] MEDS: SOLU-CORTEF 125 MG IV (14:12)
[2024-09-24] MEDS: ZOFRAN 4 MG IV (14:13)
[2024-09-24] MEDS: TORADOL 15 MG IV (14:16)
[2024-09-24 17:00] VITALS: BP 143/97
--- NOTE | 2024-09-24 17:00 | EDRN ---
Reviewed discharge instructions with patient. Verbalized understanding. Ambulated with steady gait to the lobby.
== END 2024-09-24 17:05 | disposition home or self-care (01) ==
LOC: EMR 13:07
PROVIDERS: EMERGENCY PHYSICIAN Emergency Medicine; FAMILY PHYSICIAN Nurse Practitioner
DX: M25.511 Pain in right shoulder (principal); X58.XXXD Exposure to other specified factors, subsequent encounter; R03.0 Elevated blood-pressure reading, without diagnosis of hypertension
CPT/HCPCS: 99284; 96374; 96375 ×3; 73030

== ENCOUNTER → 2024-09-29 14:33 | Outpatient (REF) | payer OTHER, SELFPAY | LOC: PAVMRI 14:33 | PROVIDERS: ATTENDING PHYSICIAN Specialist; FAMILY PHYSICIAN Nurse Practitioner | DX: M25.511 Pain in right shoulder (principal) | CPT/HCPCS: 73221 ==

== ENCOUNTER → 2024-10-16 08:54 | Outpatient (REF) | payer OTHER, SELFPAY | LOC: EMG 08:54 | PROVIDERS: ATTENDING PHYSICIAN Specialist; FAMILY PHYSICIAN Nurse Practitioner | DX: R20.2 Paresthesia of skin (principal); R20.0 Anesthesia of skin | CPT/HCPCS: 95886; 95909 ==

== ENCOUNTER 2024-10-27 06:25 | Day surgery (SDC) | payer OTHER, SELFPAY | END 2024-10-27 11:16 | disposition home or self-care (01) | LOC: GI 06:25 | PROVIDERS: ATTENDING PHYSICIAN Student in an Organized Health Care Education/Training Program | DX: R12 Heartburn (principal); R93.3 Abnormal findings on diagnostic imaging of other parts of digestive tract; K44.9 Diaphragmatic hernia without obstruction or gangrene; K22.89 Other specified disease of esophagus; K21.9 Gastro-esophageal reflux disease without esophagitis; K21.00 Gastro-esophageal reflux disease with esophagitis, without bleeding; K22.70 Barrett's esophagus without dysplasia | CPT/HCPCS: 43239; 88305; 88342 ==

== ENCOUNTER → 2024-12-22 06:47 | Outpatient (REF) | payer OTHER, SELFPAY | LOC: MRI 3T 06:47 | PROVIDERS: ATTENDING PHYSICIAN Physician Assistant; FAMILY PHYSICIAN Nurse Practitioner | DX: M54.12 Radiculopathy, cervical region (principal); M62.81 Muscle weakness (generalized) | CPT/HCPCS: 72141 ==

== ENCOUNTER 2025-01-25 08:38 | Day surgery (SDC) | payer OTHER, SELFPAY | END 2025-01-25 12:50 | disposition home or self-care (01) | LOC: GI 08:38 | PROVIDERS: ATTENDING PHYSICIAN Student in an Organized Health Care Education/Training Program | DX: K44.9 Diaphragmatic hernia without obstruction or gangrene (principal); K22.70 Barrett's esophagus without dysplasia | CPT/HCPCS: 43239; 88305 ==